=== PATIENT | female | born 1965 | race Caucasian/White ===

== ENCOUNTER 2016-11-03 07:14 | Day surgery (SDC) | payer OTHER ==
[~2016-11-03] VITALS: Ht 160 cm; Wt 60.9 kg
[2016-11-03 08:26] VITALS: Ht 160 cm; Wt 60.9 kg
[2016-11-03] MEDS ORDERED: high cholesterol med (08:32)
[2016-11-03 08:55] VITALS: BP 127/70; PULSE 60; RESP 12
[2016-11-03] MEDS ORDERED: MIDAZOLAM 1 MG/ML 2 ML INJ ONE ×2 (09:30)
[2016-11-03] MEDS ORDERED: FENTAnyl 50 MCG/ML VIAL ONE (09:30)
[2016-11-03 09:55] VITALS: BP 97/67; RESP 20
--- NOTE | 2016-11-03 11:45 | GILP ---
DATE OF PROCEDURE: NAME OF PROCEDURE: Colonoscopy. SURGEON: Suma Gutierrez MD PREOPERATIVE DIAGNOSIS: Screening colonoscopy. POSTOPERATIVE DIAGNOSES 1. Colonoscopy all the way to the cecum. 2. Internal hemorrhoids. 3. No colon neoplasm was identified. INDICATION FOR THE PROCEDURE: Ms. Rosibel Kennedy is a 51-year-old female patient who was sc heduled for screening colonoscopy. The procedure and possible complications were well explained to the patient. The patient understood and consented to the procedure. DESCRIPTION OF PROCEDURE: Under the influence of fentanyl and Versed, the colonoscope was carefully introduced in the rectum and under direct vision, it was advanced all the way to the cecum. FINDINGS: The patient had internal hemorrhoids. No colon neoplasm was identified. She tolerated the procedure very well and there was no complication from the procedure. At the end of the procedures, she was awake with stable vital signs and she was discharged home to the care of her family. IMPRESSION: 1. Colonoscopy all the way to the cecum. 2. Internal hemorrhoids. 3. No colon neoplasm was identified. PLAN: Next screening colonoscopy in 10 years. Dictated By: SUMA KELLY/TALA Conf#: [id number] DID#: [id number]
== END 2016-11-03 10:55 | disposition home or self-care (01) ==
LOC: GIL 07:14
PROVIDERS: ATTEND Internal Medicine Gastroenterology
DX: Z12.11 Encounter for screening for malignant neoplasm of colon (principal); K64.8 Other hemorrhoids
CPT/HCPCS: 45378; J2250; J3010; Z7610

== ENCOUNTER 2019-04-15 07:24 | Day surgery (SDC) | payer OTHER ==
[2019-04-15] VITALS (16 sets, daily range): BP systolic 111–125; BP diastolic 61–80; PULSE 48–71; RESP 15–26; Ht 157.5 cm; Wt 66.0 kg
[~2019-04-15] VITALS: Ht 157.5 cm; Wt 66.0 kg
[~2019-04-15 07:24] MED LIST: CEFAZOLIN 2 GM/50 ML (PMX) 50 ML IVPB ONE; MEPERIDINE 25 MG INJ ONE; SOD CHLORIDE 0.9% 1,000 ML IV SCH; high cholesterol med
--- NOTE | 2019-04-15 11:07 | PREAC ---
Date/Time of Note Date/Time of Note DATE: 04/15/19 TIME: 11:05 Anesthesia Eval and Record Evaluation Time Pre-Procedure Interview DATE: 04/15/19 TIME: 11:05 Age 54 Sex female NPO: 8 hrs Preoperative diagnosis incisional hernia Planned procedure laparoscopic incisional hernia repair Past Medical History Past Medical History: Includes Cardio: Dyslipidemia Surgery & Anesthesia Issues No known issue Meds Anticoagulation: No Beta Felipa within 24 hr: No Reason Beta Felipa not given: Pt. not on B-Felipa Discontinued Reported Medications [high cholesterol med] No Conflict Check 11/03/16 Current Medications Sodium Chloride 1,000 ml @ 75 mls/hr [id number] IV ; Start 04/15/19 at 07:00 Meds reviewed: Yes Allergies Coded Allergies: No Known Allergy (Unverified , 04/15/19) Allergies Reviewed: Yes Labs/Studies Labs Reviewed: Reviewed by anesthesiologist test: Negative Studies: ECG, CXR Pre-procedure Exam Last vitals Vital Signs Date Temp Pulse Resp B/P (MAP) Pulse Ox O2 O2 Flow FiO2 Time Delivery Rate 04/15/19 98.1 64 16 125/77 99 Room Air 09:13 (93) Airway: Adequate mouth opening, Adequate thyromental dist Mallampati: Mallampati I Teeth: Normal Lung: Normal Heart: Normal ASA Physical Status ASA physical status: 1 Emergency: None Planned Anesthetic General/MAC: ETT Planned Pain Management Parenteral pain med Pre-operative Attestations Prior to commencing anesthesia and surgery, the patient was re-evaluated, there was verification of: *The patient's identity *The results of appropriate recent lab work and preoperative vital signs *The above evaluation not changing prior to induction *Anesthetic plan, risk benefits, alternative and complications discussed with patient/family; questions answered; patient/family understands, accepts and wishes to proceed. MICAELA ZAVALA Apr 15, 2019 11:07
[2019-04-15] MEDS ORDERED: PROPOFOL 100 ML ONE (11:10)
[2019-04-15] MEDS ORDERED: ROCURONIUM 50 MG INJ ONE (11:10)
[2019-04-15] MEDS ORDERED: LIDOCAINE 2% (SDV) 5 ML INJ ONE (11:10)
[2019-04-15] MEDS ORDERED: BUPIVACAINE 0.25% (MPF) 30 ML INJ ONE (11:12)
[2019-04-15] MEDS ORDERED: POLYMYXIN/BACITRACIN 1L IRRIG ONE (11:12)
[2019-04-15] MEDS ORDERED: ONDANSETRON 4 MG INJ ONE ×2 (11:33→12:03)
[2019-04-15] MEDS ORDERED: DEXAMETHASONE 4 MG/ML 5 ML INJ ONE (11:33)
[2019-04-15] MEDS ORDERED: CEFAZOLIN 1 GM INJ ONE (11:33)
[2019-04-15] MEDS ORDERED: BUPIVACAINE 0.25% (MPF) 30 ML INJ INJ ONE (11:49)
[2019-04-15] MEDS ORDERED: SUGAMMADEX SODIUM 200 MG/2 ML VIAL IV ONE (12:04)
--- NOTE | 2019-04-15 12:09 | OPR ---
Date/Time of Note Date/Time of Note DATE: 04/15/19 TIME: 12:07 Operative Report Procedure Date: Apr 15, 2019 Preoperative Diagnosis incarcerated incisional hernia Postoperative Diagnosis same Operation/Procedure Performed 1. laparoscopic incarcerated incisional hernia repair 2. implantation of 15 x 15 cm polypropylene mesh 3. therapeutic injection of subcutaneous local anesthesia Surgeon see signature line Green End Worker Maximino Bush Anesthesia Type: general Estimated Blood Loss: 0 - 10 ml's Transfusion none Specimen none Grafts/Implants none Complications none Pt Condition Post Procedure: stable Indications This is a 54-year-old female with symptomatic incisional incarcerated hernia. She has had prior laparoscopic cholecystectomy. Risks alternatives benefits and personal were discussed the patient. Patient expressed understanding and consents to the operation. Procedure Description Patient is taken to the OR and prepped and draped in usual sterile fashion. Surgical time was performed. IV antibiotics given. Left upper quadrant 5 mm transverse incision was made with a 15 blade. Using a 5 mm optical trocar optical entry is performed. Pneumoperitoneum is established. Left flank 12 mm optical trochars placed under direct visualization. Left lower quadrant 5 mm optical trochars placed under direct visualization. Upon initial inspection there is incarcerated hernia contents. This was reduced laparoscopically using laparoscopic harmonic. The fascial defect was small and did not need primary closure. Underlay mesh with polypropylene mesh 15 x 15 cm was tacked into place with secure strap. Underlying coverage with approximate 45 cm of coverage was ensured in all directions. Good hemostasis status. All ports were removed under direct visualization. Skin is closed and skin yessi. Therapeutic subcutaneous local anesthesia was injected at the incision site. Dressings were applied. Jeri CEDENO Apr 15, 2019 12:09
--- NOTE | 2019-04-15 12:25 | PAC ---
Date/Time of Note Date/Time of Note DATE: 04/15/19 TIME: 12:25 Post-Anesthesia Notes Post-Anesthesia Note Last documented vital signs Vital Signs Date Temp Pulse Resp B/P (MAP) Pulse Ox O2 O2 Flow FiO2 Time Delivery Rate 04/15/19 98.0 64 16 122/77 99 Room Air 1225 (93) Activity: WNL Respiratory function: WNL Cardiovascular function: WNL Mental status: Baseline Pain reasonably controlled: Yes Hydration appropriate: Yes Nausea/Vomiting absent: Yes MICAELA ZAVALA Apr 15, 2019 12:25
[2019-04-15] MEDS ORDERED: KETOROLAC 30 MG INJ IV PRN (12:30)
[2019-04-15] MEDS ORDERED: LABETALOL HCL 20MG INJ IV PRN (12:30)
[2019-04-15] MEDS ORDERED: METOCLOPRAMIDE 10 MG INJ IV PRN (12:30)
[2019-04-15] MEDS ORDERED: hydrALAzine 20 MG INJ IV PRN (12:30)
[2019-04-15] MEDS ORDERED: ALBUTEROL 0.083% (NEB) 2.5 MG/3 ML AMP HHN PRN (12:30)
[2019-04-15] MEDS ORDERED: FENTAnyl 50 MCG/ML VIAL IV PRN ×3 (12:30)
[2019-04-15] MEDS ORDERED: MEPERIDINE 25 MG INJ IV PRN (12:30)
[2019-04-15] MEDS ORDERED: OXYCODONE/ACETAMINOPHEN (5/325) TAB PO PRN ×2 (12:30)
[2019-04-15] MEDS ORDERED: DIPHENHYDRAMINE 50 MG INJ IV PRN (12:30)
[2019-04-15] MEDS ORDERED: ONDANSETRON 4 MG INJ IV PRN (12:30)
[2019-04-15] MEDS ORDERED: EPHEDrine 25 MG/5 ML SYG IV PRN (12:30)
[2019-04-15] MEDS ORDERED: HYDROCODONE/APAP (5/325) TAB PO ONE (12:30)
== END 2019-04-15 14:40 | disposition home or self-care (01) ==
LOC: SDS 07:24
PROVIDERS: ATTEND Surgery
DX: K43.0 Incisional hernia with obstruction, without gangrene (principal); E78.5 Hyperlipidemia, unspecified
CPT/HCPCS: 49655; J0690; J2175; J3010; Z7512; Z7610; J1100; J2405

== ENCOUNTER 2019-04-29 08:20 | Emergency (ER) | payer OTHER ==
[~2019-04-29] VITALS: Ht 154.9 cm; Wt 60.0 kg
[~2019-04-29 08:20] MED LIST changes: -CEFAZOLIN 2 GM/50 ML (PMX) 50 ML IVPB ONE; -MEPERIDINE 25 MG INJ ONE; +SIME80TA53 PO; -SOD CHLORIDE 0.9% 1,000 ML IV SCH; -high cholesterol med
[2019-04-29 08:22] VITALS: BP 120/73; PULSE 70; RESP 18; Ht 154.9 cm; Wt 60.0 kg
--- NOTE | 2019-04-29 10:27 | ERD ---
ER Documentation Chief Complaint Chief Complaint song removal, hernia repair 2 weeks ago same day surgery HPI 54-year-old female presenting for staple removal of the abdomen. 2 weeks ago patient had hernia repair and was requested to return for suture removal. Patient has had no complications at the wound sites. Medical history is hypercholesterolemia. NKDA. Surgical history is hernia repair and cholecystectomy. Social history denies ROS All systems reviewed and are negative except as per history of present illness. Medications Home Meds Active Scripts Simethicone (GAS RELIEF) 80 Mg Tab.chew, 80 MG PO DAILY, #30 TAB.CHEW Prov:OREN VELA PA-C 04/29/19 Allergies Allergies: Coded Allergies: No Known Allergy (Unverified , 04/29/19) PMhx/Soc History of Surgery: Yes (LAP.KARISSA , HERNIA REPAIR ) Anesthesia Reaction: No Hx Neurological Disorder: No Hx Respiratory Disorders: No Hx Cardiac Disorders: Yes (HYPERLIP) Hx Psychiatric Problems: No Hx Miscellaneous Medical Probl: No Hx Alcohol Use: No Hx Substance Use: No Hx Tobacco Use: No Smoking Status: Never smoker FmHx Family History: No diabetes, No coronary disease, No other Physical Exam Vitals Vital Signs Date Temp Pulse Resp B/P (MAP) Pulse Ox O2 O2 Flow FiO2 Time Delivery Rate 04/29/19 98.1 70 18 120/73 99 08:22 (89) Physical Exam GENERAL: The patient is well-appearing, well-nourished, in no acute distress HEENT: Atraumatic. Conjunctivae are pink. Pupils equal, round, and reactive to light. There is no scleral icterus. Tympanic membranes clear bilaterally. Oropharynx clear. CHEST: Clear to auscultation bilaterally. There are no rales, wheezes or rhonchi. HEART: Regular rate and rhythm. No murmurs, clicks, rubs or gallops. ABDOMEN:Soft, nontender and nondistended. Good bowel sounds. No rebound or guarding. No gross peritonitis. No gross organomegaly or masses. SKIN: Equals removed without complication no surrounding erythema dehiscence or purulence. Procedures/MDM ER course: Sutures removed without complication. MDM: 54-year-old female presenting for staple removal. Song removed without complication. I have low suspicion for acute abdominal emergency or infectious process. Patient is discharged with strict ER precautions and told to follow-up with primary care within 1 to 2 days for close evaluation. Patient is told symptoms change or worsen to return immediately to the ER. All questions answered at discharge Departure Diagnosis: Primary Impression: Encounter for removal of song Condition: Stable Patient Instructions: Staple Removal, No Complication Referrals: COMMUNITY CLINICS YOU HAVE RECEIVED A MEDICAL SCREENING EXAM AND THE RESULTS INDICATE THAT YOU DO NOT HAVE A CONDITION THAT REQUIRES URGENT TREATMENT IN THE EMERGENCY DEPARTMENT. FURTHER EVALUATION AND TREATMENT OF YOUR CONDITION CAN WAIT UNTIL YOU ARE SEEN IN YOUR DOCTORS OFFICE WITHIN THE NEXT 1-2 DAYS. IT IS YOUR RESPONSIBILITY TO MAKE AN APPOINTMENT FOR FOLOW-UP CARE. IF YOU HAVE A PRIMARY DOCTOR --you should call your primary doctor and schedule an appointment IF YOU DO NOT HAVE A PRIMARY DOCTOR YOU CAN CALL OUR PHYSICIAN REFERRAL HOTLINE AT IF YOU CAN NOT AFFORD TO SEE A PHYSICIAN YOU CAN CHOSE FROM THE FOLLOWING [facility] [address] [facility] [facility] [address] [facility] [facility] [address] [facility] [address] [facility] [address] [facility]. [facility]. [address] Additional Instructions: FOLLOW UP WITH YOUR PRIMARY CARE PHYSICIAN TOMORROW.Return to this facility if you are not improving as expected. OREN VELA PA-C Apr 29, 2019 10:27
== END 2019-04-29 08:47 | disposition home or self-care (01) ==
LOC: FTE 08:20
DX: Z48.02 Encounter for removal of sutures (principal)
CPT/HCPCS: 99282